=== PATIENT | female | born 1945 | race Caucasian/White ===

== ENCOUNTER → 2016-10-09 | Outpatient (CLI) | payer BC ==
[~2016-10-09] MED LIST: ASPIRIN E.C. 8181 MG PO; CADUET 10 MG-201 TAB PO; FEMARA PO; GLUCOPHAGE1000 MG PO; LANTUS100 U/ML SC; PROAIR HFA0.09 MG/AC IH; RT ADVAIR 228 DISKUS IH; RT SPIRIVA18 MCG IH; VITAMIN D31000 IU PO
== END ==
LOC: COL.RAD 13:32
DX: R16.0 Hepatomegaly, not elsewhere classified (principal); K76.89 Other specified diseases of liver; D35.02 Benign neoplasm of left adrenal gland; K82.8 Other specified diseases of gallbladder; I70.0 Atherosclerosis of aorta
CPT/HCPCS: Q9967

== ENCOUNTER → 2018-01-16 | Outpatient (CLI) | payer MEDICARE, BC | LOC: MC.RAD 11:20 | DX: Z12.31 Encounter for screening mammogram for malignant neoplasm of breast (principal); Z98.890 Other specified postprocedural states ==

== ENCOUNTER → 2019-09-03 | Outpatient (CLI) | payer MEDICARE | LOC: COL.VAS 14:11 | DX: E11.29 Type 2 diabetes mellitus with other diabetic kidney complication (principal); J44.9 Chronic obstructive pulmonary disease, unspecified; L03.116 Cellulitis of left lower limb; W19.XXXD Unspecified fall, subsequent encounter ==